=== PATIENT | female | born 1955 | race Native Hawaiian/Other Pacific Islander ===

== ENCOUNTER 2020-05-17 20:53 | Inpatient (IN) | payer OTHER ==
[~2020-05-17] VITALS: Ht 154.9 cm; Wt 82.3 kg
[~2020-05-17 20:53] MED LIST: ACET-689 PO; ASA LO-DOSE81 MG PO; BENICAR HCT1 TA1 PO; BYSTOLIC10 MG PO; CVS OMEPRAZOLE20 MG PO; FURO80TA4 PO; HYDRALAZINE10 MG PO; LIPITOR20 MG PO; POTA20TA4 PO
[2020-05-17 21:24] VITALS: BP 184/92; TEMP 100.7
[2020-05-17 21:57] LABS: POTASSIUM 3.4 mmol/L (3.6-5.2); SODIUM 135 mmol/L (136-145)
[2020-05-17 22:00] LABS: PLATELET COUNT 179 K/uL (152-353)
[2020-05-17 22:08] LABS: PARTIAL THROMBOPLASTIN TIME 33.2 SECONDS (24.5-33.6)
[2020-05-18 00:27] VITALS: BP 130/58; TEMP 98.7; Ht 154.9 cm; Wt 82.3 kg
[2020-05-18] MEDS ORDERED: ATEN50TA36 PO (01:04)
[2020-05-18] MEDS ORDERED: LOSA50TA PO (01:07)
[2020-05-18] MEDS ORDERED: ISOS30TA17 PO (01:09)
[2020-05-18] MEDS ORDERED: PANTOPRAZOLE 40MG TA PO (01:12)
[2020-05-18] MEDS ORDERED: SPIRONOLACT25 MG PO (01:13)
[2020-05-18] MEDS ORDERED: D32000 UNI1 PO (01:18)
[2020-05-18] MEDS ORDERED: CHLORTHALID25 MG PO (01:22)
[2020-05-18 04:00] VITALS: BP 129/53; TEMP 98.1
[2020-05-18 08:00] VITALS: BP 92/48; TEMP 97.6
[2020-05-18 12:00] VITALS: BP 119/62; TEMP 97.7
[2020-05-18 16:00] VITALS: BP 128/56; TEMP 97.8
[2020-05-18 20:00] VITALS: BP 121/47; TEMP 98
[2020-05-19 00:18] VITALS: BP 129/51; TEMP 98.6
[2020-05-19 04:00] VITALS: BP 112/64; TEMP 98.5
[2020-05-19 06:15] LABS: PLATELET COUNT 171 K/uL (152-353)
[2020-05-19 06:41] LABS: POTASSIUM 4.1 mmol/L (3.6-5.2)
[2020-05-19 08:00] VITALS: BP 135/65; TEMP 97.5
[2020-05-19 12:00] VITALS: BP 157/71; TEMP 97.6
[2020-05-19 16:00] VITALS: BP 126/60; TEMP 98.3
[2020-05-19 20:00] VITALS: BP 135/53; TEMP 98.1
[2020-05-20] VITALS: BP 137/50; TEMP 98.4
[2020-05-20 03:48] VITALS: BP 133/57; TEMP 98.8
[2020-05-20 08:00] VITALS: BP 135/62; TEMP 97.8
[2020-05-20] MEDS ORDERED: ASPIRIN325 M1 PO (11:54)
[2020-05-20] MEDS ORDERED: CRESTOR5 MG PO (11:56)
[2020-05-20 12:00] VITALS: BP 144/66; TEMP 97.4
== END 2020-05-20 14:20 | disposition home or self-care (01) | DRG 313 ==
LOC: ED 20:53 → MED/SURG 22:30
PROVIDERS: Hospitalist; ADMIT Internal Medicine
DX: R07.89 Other chest pain (principal); E87.2 Acidosis; G40.802 Other epilepsy, not intractable, without status epilepticus; R53.1 Weakness; K21.9 Gastro-esophageal reflux disease without esophagitis; R94.6 Abnormal results of thyroid function studies; I25.10 Atherosclerotic heart disease of native coronary artery without angina pectoris; R06.09 Other forms of dyspnea; R00.0 Tachycardia, unspecified; I11.9 Hypertensive heart disease without heart failure
CPT/HCPCS: 36415; 80053; 82550; 82728; 83605; 83880; 84439; 84443; 84480; 84484; 85027; 85379; 85610; 85730; 87040; 87502; 87635; 87651; 90686; 93005; 94760; 96365; 96375; 99284; G2023; J1650; J1956; J2270; J2405; Q9963; U0003

== ENCOUNTER 2020-08-03 07:21 | Outpatient (CLI) | payer OTHER ==
[~2020-08-03 07:21] MED LIST changes: +ASPIRIN325 M1 PO; +ATEN50TA36 PO; +CHLORTHALID25 MG PO; +CRESTOR5 MG PO; +D32000 UNI1 PO; +ISOS30TA17 PO; +LOSA50TA PO; +PANTOPRAZOLE 40MG TA PO; +SPIRONOLACT25 MG PO
== END 2020-08-03 18:53 | disposition home or self-care (01) ==
LOC: RESP 07:21
PROVIDERS: ATTEND Internal Medicine Sleep Medicine
DX: R06.02 Shortness of breath (principal)

== ENCOUNTER 2022-07-10 08:04 | Outpatient (CLI) | payer OTHER | END 2022-07-10 19:47 | disposition home or self-care (01) | LOC: CT 08:04 | PROVIDERS: ATTEND Internal Medicine | DX: R47.02 Dysphasia (principal) | CPT/HCPCS: 36415; 82565; 84520; Q9963 ==